=== PATIENT | male | born 1965 | race Caucasian/White ===

== ENCOUNTER 2018-10-02 13:13 | Emergency (ER) | payer SELFPAY ==
[2018-10-02] MEDS ORDERED: Ketorolac Tromethamine 30 MG/ML VIAL ONE (13:38)
[2018-10-02 14:00] LABS: #Lymphocytes 1.6 thou/uL (1.20-3.40); #Monocytes 0.4 thou/uL (0.11-0.59); #Neutrophils 5.3 thou/uL (1.40-6.50); %Basophils 0.5 % (0.0-1.0); %Eosinophils 0.4 % (0.0-10.0); %Lymphocytes 21.4 % (21.0-51.0); %Monocytes 5.3 % (0.0-10.0); %Neutrophils 72.3 % (42.0-75.0); Hemoglobin 15.1 g/dL (14.0-18.0); Mean Corpuscular Hemoglobin 32.9 pg (27.0-31.0); Mean Platelet Volume 7.7 fL (7.4-10.4); Platelet Count 196 thou/uL (130-400); RBC Distribution Width 10.8 % (11.5-14.5); Red Blood Cell (RBC) Count 4.59 mill/uL (4.70-6.10); White Blood Cell (WBC) Count 7.3 thou/uL (4.8-10.8)
[2018-10-02 14:15] LABS: ALT (SGPT) 33 U/L (8-55); AST (SGOT) 22 U/L (5-34); Albumin 4.1 g/dL (3.5-5.0); Alkaline Phosphatase 70 U/L (40-150); Anion Gap 12 mmol/L (10-20); BUN (Urea Nitrogen) 10 mg/dL (8.4-25.7); Bilirubin, Total 0.8 mg/dL (0.2-1.2); Calc. Creatinine Clearance 0 mL/min (70-130); Calcium 9.1 mg/dL (7.8-10.44); Carbon Dioxide 26 mmol/L (22-29); Chloride 103 mmol/L (98-107); Estimated GFR-MDRD 89; Globulin 2.8 g/dL (2.4-3.5); Glucose 94 mg/dL (70-105); Lipase 14 U/L (8-78); Potassium 3.4 mmol/L (3.5-5.1); Protein, Total 6.9 g/dL (6.0-8.3); Sodium 138 mmol/L (136-145)
--- NOTE | 2018-10-02 14:59 | CT ---
CT ABDOMEN AND PELVIS WITH CONTRAST: Date: 10/02/18 HISTORY: Chest pain. Inhalation of glass. COMPARISON: None. FINDINGS: Lung bases are clear. No pericardial effusion. There is a healing left anterior 6th rib fracture. There are no dilated loops of large or small bowel. No free intraperitoneal gas or fluid. Aortoiliac contour is nonaneurysmal. No hydronephrosis. Adrenal glands unremarkable. The spleen, live r, and gallbladder are all unremarkable. Skeleton is unremarkable for acute abnormality. IMPRESSION: 1. Healing left anterior 6th rib fracture. 2. No acute inflammatory process in the abdomen or pelvis. POS: [facility]
[2018-10-02] MEDS ORDERED: ISOVUE-370 76%-LOCM 1 ML ONE (16:50)
== END 2018-10-02 15:59 | disposition home or self-care (01) ==
LOC: ERS 13:13
DX: S22.32XA Fracture of one rib, left side, initial encounter for closed fracture (principal); K21.9 Gastro-esophageal reflux disease without esophagitis; E78.1 Pure hyperglyceridemia; F41.9 Anxiety disorder, unspecified; F17.290 Nicotine dependence, other tobacco product, uncomplicated; W25.XXXA Contact with sharp glass, initial encounter
CPT/HCPCS: 74177; 80053; 83690; 85025; 96361; 96374; J1885

== ENCOUNTER 2018-10-13 12:57 | Emergency (ER) | payer SELFPAY ==
--- NOTE | 2018-10-13 13:42 | RAD ---
TWO VIEW CHEST: Indication: Injury with chest pain. FINDINGS: Mild elevation of the right hemidiaphragm. There is no consolidation, effusion, or discrete pneumotho rax. Cardiac silhouette and mediastinal structures are within normal limits in size. IMPRESSION: No focal consolidation. POS: [facility]
== END 2018-10-13 15:08 | disposition home or self-care (01) ==
LOC: ERS 12:57
DX: S20.211A Contusion of right front wall of thorax, initial encounter (principal); S20.212A Contusion of left front wall of thorax, initial encounter; K21.9 Gastro-esophageal reflux disease without esophagitis; E78.2 Mixed hyperlipidemia; F41.9 Anxiety disorder, unspecified; W19.XXXA Unspecified fall, initial encounter
CPT/HCPCS: 71046

== ENCOUNTER 2021-09-22 19:04 | Emergency (ER) | payer SELFPAY ==
[2021-09-22] MEDS ORDERED: Lorazepam 1 MG TAB ONE (20:28)
[2021-09-22 20:55] LABS: Amphetamine Not Detected (NotDetected); Barbiturates Screen Not Detected (NotDetected); Benzodiazepine Screen Not Detected (NotDetected); Cocaine Metabolite Screen Not Detected (NotDetected); Methadone Not Detected (NotDetected); Methamphetamine Not Detected (NotDetected); Opiate Screen Not Detected (NotDetected); Oxycodone Screen Not Detected (NotDetected); Phencyclidine (PCP) Not Detected (NotDetected); THC/Cannabinoid Screen Not Detected (NotDetected); Tricyclic Screen Not Detected (NotDetected)
[2021-09-22 21:01] LABS: Acetaminophen Less than 6.0 mcg/mL (10.0-30.0); Alcohol Less than 10 mg/dL (Less than 10); CK (CPK) 39 U/L (30-200); Salicylate Less than 8.0 mg/dL (15.0-30.0)
[2021-09-22 21:02] LABS: ALT (SGPT) 27 U/L (8-55); AST (SGOT) 16 U/L (5-34); Albumin 4.2 g/dL (3.5-5.0); Alkaline Phosphatase 58 U/L (40-110); Anion Gap 13 mmol/L (10-20); BUN (Urea Nitrogen) 20 mg/dL (8.4-25.7); Bilirubin, Total 0.6 mg/dL (0.2-1.2); Calc. Creatinine Clearance 0 mL/min (70-130); Calcium 9.2 mg/dL (7.8-10.44); Carbon Dioxide 22 mmol/L (22-29); Chloride 104 mmol/L (98-107); Globulin 2.7 g/dL (2.4-3.5); Glucose 100 mg/dL (70-105); Potassium 4.2 mmol/L (3.5-5.1); Protein, Total 6.9 g/dL (6.0-8.3); Sodium 135 mmol/L (136-145)
[2021-09-22 21:30] LABS: #Eosinphils 0.2 thou/uL (0.0-0.7); #Lymphocytes 2.6 thou/uL (1.20-3.40); #Neutrophils 5.6 thou/uL (1.40-6.50); %Basophils 0.5 % (0.0-1.0); %Eosinophils 1.6 % (0.0-10.0); %Lymphocytes 27.7 % (21.0-51.0); %Monocytes 10.7 % (0.0-10.0); %Neutrophils 59.5 % (42.0-75.0); Hemoglobin 15.8 g/dL (14.0-18.0); Mean Corpuscular HGB CONC 37.1 g/dL (32.0-36.0); Mean Corpuscular Hemoglobin 34.6 pg (27.0-31.0); Mean Corpuscular Volume 93.2 fL (78.0-98.0); Mean Platelet Volume 8.2 fL (7.4-10.4); Platelet Count 216 thou/uL (130-400); RBC Distribution Width 10.8 % (11.5-14.5); Red Blood Cell (RBC) Count 4.56 mill/uL (4.70-6.10); White Blood Cell (WBC) Count 9.3 thou/uL (4.8-10.8)
[2021-09-23] MEDS ORDERED: hydrOXYzine 25 MG TAB ONE (00:53)
== END 2021-09-23 03:23 | disposition home or self-care (01) ==
LOC: ERS 19:04
DX: F32.9 Major depressive disorder, single episode, unspecified (principal); K21.9 Gastro-esophageal reflux disease without esophagitis; E78.5 Hyperlipidemia, unspecified; F17.290 Nicotine dependence, other tobacco product, uncomplicated
CPT/HCPCS: 36415; 80053; 80306; 80307; 82550; 84443; 85025